=== PATIENT | female | born 1990 | race African-American/Black ===

== ENCOUNTER 2021-11-05 18:32 | Emergency (ER) | payer BC, OTHER ==
[~2021-11-05] VITALS: Ht 152.4 cm; Wt 54.5 kg
[2021-11-05 21:10] VITALS: BP 132/65
[2021-11-05] MEDS ORDERED: METH4TAB2 PO (21:44)
[2021-11-05] MEDS ORDERED: CETI10TA74 PO (21:44)
[2021-11-05] MEDS ORDERED: FAMO-63 PO (21:44)
--- NOTE | 2021-11-05 21:45 | PHYS DOC ---
Past Medical History Past Surgical History: Other Additional Past Surgical Histo: [employer] [facility] Adult General Chief Complaint Chief Complaint: SKIN PROBLEM HPI HPI The patient is a 30-year-old female who is otherwise healthy and a non-smoker. She presents for evaluation of a scattered nonconfluent maculopapular itchy red rash to face and torso and arms which had onset 2 days ago. She reports use of a new detergent recently and also states she moved house within the last week, so many new environmental exposures. No new medications or foods. No fevers, nausea or vomiting, upper respiratory congestion/rhinorrhea, cough, mucosal rash or lesions, swelling of lips or face or throat or tongue, difficulty breathing or swallowing, GI upset, abdominal pain of any kind. Patient is alert, pleasantly and appropriately interactive and in no acute distress with appropriate vital signs, ambulatory with a narrow, steady gait to her ED bed. She is in no acute distress. Review of Systems Review of Systems A 12 point review of systems was completed and was negative except where noted in HPI above. Current Medications Current Medications Current Medications Medications (Trade) Dose Ordered Sig/Mabel Start Time Stop Time Status Last Admin Dose Admin Dexamethasone Sodium Phosphate (Decadron) 10 mg 1X ONCE 11/05/21 21:30 11/05/21 21:31 UNV Famotidine (Pepcid) 40 mg 1X ONCE 11/05/21 21:30 11/05/21 21:31 UNV Allergies Allergies Allergies Coded Allergies Type Severity Reaction Last Updated Verified No Known Drug Allergies 11/05/21 No Physical Exam Physical Exam 30-year-old female appearing nontoxic and in no acute distress. Head is normocephalic and atraumatic. Neck is supple and nontender. Oropharynx is moist. Lungs are clear to auscultation at all stations. There is normal S1 and S2 without rubs or gallops and capillary refill is appropriate, less than 2 seconds globally. Abdomen is soft, nontender and nondistended. Skin is warm and dry without cyanosis, clubbing or edema. There is a widely scattered maculopapular red rash with associated mild excoriations noted to torso, arms and face. Psychiatrically, the patient demonstrates appropriate mood and affect and is alert. Current Patient Data Vital Signs Vital Signs Date Time Temp Pulse Resp B/P (MAP) Pulse Ox O2 Delivery O2 Flow Rate FiO2 11/05/21 21:10 98.4 62 18 132/65 (87) 96 Room Air 98.4 EKG EKG [] Radiology/Procedures Radiology/Procedures [] Course & Med Decision Making Course & Med Decision Making Likely allergic mild itchy maculopapular red rash. Unclear allergen although a couple of possibilities suggest themselves. Will treat with a dose of dexamethasone and Pepcid here (patient is driving so no sedating antihistamines here). Will discharge home with oral steroids, Zyrtec and Pepcid. Patient will be referred to primary care for close follow-up in the next 1 to 2 days. She understands that if she feels worse instead of better or develops other new symptoms of concern that she should return the emergency department right away for reevaluation. All questions are answered. Dragon Disclaimer Hardik Disclaimer This electronic medical record was generated, in whole or in part, using a voice recognition dictation system. Departure Departure Impression: Primary Impression: Rash and other nonspecific skin eruption Disposition: HOME / SELF CARE / HOMELESS Condition: IMPROVED Patient Instructions: Rash Additional Instructions: Follow-up very closely with your primary care doctor in the office in the next 2 to 4 days for a reevaluation of your symptoms and a discussion of next best steps in care. Call tomorrow morning to set up an appointment to be seen and let the clinical data analyst know that this is an ER follow-up visit and needs to happen within the next few days. Begin taking the Medrol Dosepak steroid taper as per the instructions on the package. Take the Zyrtec and Pepcid antihistamines for the next 3 days to prevent recurrence of your rash. Return to the emergency department right away for worsening symptoms of any kind or with any other new symptoms of concern. Scripts Famotidine (PEPCID) 20 Mg Tablet 20 MG PO BID for 3 Days, #6 TAB Prov: ESTELA TAPIA MD 11/05/21 Cetirizine Hcl (ZYRTEC) 10 Mg Tablet 1 TAB PO DAILY for 3 Days, #3 TAB 2 Refills Prov: ESTELA TAPIA MD 11/05/21 Methylprednisolone (MEDROL) 4 Mg Tab.ds.pk 1 PKG PO UD for inflammation, #1 PKG Prov: ESTELA TAPIA MD 11/05/21 ESTELA TAPIA MD Nov 05, 2021 21:45
[2021-11-05] MEDS ORDERED: FAMOTIDINE 20 MG TABLET. PO ONE (22:00)
[2021-11-05] MEDS ORDERED: DEXAMETHASONE SOD PHOS 20 MG/5 ML VIAL. PO ONE (22:00)
== END 2021-11-05 22:30 | disposition home or self-care (01) ==
LOC: ER 18:32
DX: R21 Rash and other nonspecific skin eruption (principal)
CPT/HCPCS: 99283; J1100